=== PATIENT | female | born 1990 | race African-American/Black ===

== ENCOUNTER 2017-09-14 13:55 | Emergency (ER) | payer OTHER, SELFPAY ==
[2017-09-14] MEDS ORDERED: Ibuprofen 800 MG TAB ONE (14:34)
== END 2017-09-14 14:50 | disposition home or self-care (01) ==
LOC: MADERS 13:55
DX: S02.5XXA Fracture of tooth (traumatic), initial encounter for closed fracture (principal); S16.1XXA Strain of muscle, fascia and tendon at neck level, initial encounter; S39.012A Strain of muscle, fascia and tendon of lower back, initial encounter; S29.012A Strain of muscle and tendon of back wall of thorax, initial encounter; V43.52XA Car driver injured in collision with other type car in traffic accident, initial encounter
CPT/HCPCS: 99283